=== PATIENT | male | born 1965 | race Caucasian/White ===

== ENCOUNTER 2018-07-23 07:36 | Day surgery (SDC) | payer OTHER ==
[~2018-07-23] VITALS: Ht 165.1 cm; Wt 76.7 kg
[~2018-07-23 07:36] MED LIST: LEVSOD125 PO; LOVA40 PO; TESTOSTERONE5 G1 TOP; ZESTORETIC 20-121 EA PO
--- NOTE | 2018-07-23 08:07 | NUR ---
PT ADMITTED TO MERGED WITH [facility]. AGREES WITH PLANNED SURGERY. MEDS, ALLERGIES AND HX REVIEWED. LUNG SOUNDS CLEAR.
--- NOTE | 2018-07-23 13:07 | NUR ---
Patient up to Ambulate independently. Gait steady. Discharge instructions reviewed with patient. Patient verbalizes understanding. Copy given to patient to take home. Patient States Post-Procedure ride home has been arranged. Discharged via wheelchair to private car for ride home.
== END 2018-07-23 09:00 | disposition home or self-care (01) ==
LOC: ORSCMMR 07:36 → EDSTATUS 09:00 → SURS 09:00 → PRE IP 09:00 → ORSCMMR 09:00
PROVIDERS: Surgery
PROC: 0DBH4ZZ Excision of Cecum, Percutaneous Endoscopic Approach (ICD-10-PCS; principal; 2018-07-23 09:00)
DX: D12.0 Benign neoplasm of cecum (principal); I10 Essential (primary) hypertension; E03.9 Hypothyroidism, unspecified; G47.33 Obstructive sleep apnea (adult) (pediatric); F17.210 Nicotine dependence, cigarettes, uncomplicated; Z79.899 Other long term (current) drug therapy
CPT/HCPCS: 88305; J0690; J1100; J2250; J2405; J2710; J3010; J7120

== ENCOUNTER 2022-08-23 10:44 | Day surgery (SDC) | payer OTHER ==
[~2022-08-23] VITALS: Ht 167.6 cm; Wt 74.0 kg
[2022-08-23] MEDS ORDERED: PRAV20 (11:02)
== END 2022-08-23 12:26 | disposition home or self-care (01) ==
LOC: ORSCSDS 10:44
PROVIDERS: Internal Medicine Gastroenterology
PROC: 0DJD8ZZ Inspection of Lower Intestinal Tract, Via Natural or Artificial Opening Endoscopic (ICD-10-PCS; principal; 2022-08-23 12:00)
DX: Z12.11 Encounter for screening for malignant neoplasm of colon (principal); Z86.010 Personal history of colon polyps; K55.20 Angiodysplasia of colon without hemorrhage; K57.30 Diverticulosis of large intestine without perforation or abscess without bleeding; K64.8 Other hemorrhoids; F17.210 Nicotine dependence, cigarettes, uncomplicated; Z79.899 Other long term (current) drug therapy
CPT/HCPCS: J2704; J7120